=== PATIENT | male | born 1970 | race African-American/Black ===

== ENCOUNTER 2020-12-06 05:56 | Emergency (ER) | payer OTHER ==
[~2020-12-06] VITALS: Ht 177.8 cm; Wt 72.1 kg
[~2020-12-06 05:56] MED LIST: ATIVAN0.5 MG PO; COMPLERA TABLE1 EACH PO; FLEXERIL PO; FLOVENT HFA 1110 MCG INH; FOLIC ACID1 MG PO; IPRATROPIU0.2 MG/1 M IH; ONDANSETRON HCL4 M2 PO; OXYCODONE HCL 55 MG PO; SPIRONOLACTONE50 MG PO; VENLAFAXIN75 MG/1 T2 PO; XARELTO15 MG PO; ZANTAC 150MG T150 M1 PO; ZOFRAN ODT4 MG PO; [UNRECOGNIZED DRUG - OTHER] PO
[2020-12-06 05:59] VITALS: BP 124/77
== END 2020-12-06 06:35 | disposition left against medical advice (07) ==
LOC: ER 05:56
DX: R11.2 Nausea with vomiting, unspecified (principal); R10.10 Upper abdominal pain, unspecified; R07.89 Other chest pain; J44.9 Chronic obstructive pulmonary disease, unspecified; Z86.2 Personal history of diseases of the blood and blood-forming organs and certain disorders involving the immune mechanism; Z79.899 Other long term (current) drug therapy; Z88.1 Allergy status to other antibiotic agents; Z88.5 Allergy status to narcotic agent; Z88.8 Allergy status to other drugs, medicaments and biological substances; Z91.012 Allergy to eggs

== ENCOUNTER 2021-01-25 20:57 | Emergency (ER) | payer OTHER ==
[~2021-01-25] VITALS: Ht 175.3 cm; Wt 71.7 kg
[~2021-01-25 20:57] MED LIST changes: +COMPAZINE10 MG PO; +OXYCODONE HCL E15 MG PO; +ZOFRAN ODT4 MG DISSOLVE
[2021-01-25 21:00] VITALS: BP 154/93
[2021-01-25] MEDS ORDERED: FLEXERIL PO (21:47)
[2021-01-26] MEDS ORDERED: ZOFRAN ODT4 MG PO (21:07)
== END 2021-01-25 21:57 | disposition home or self-care (01) ==
LOC: ER 20:57
DX: S16.1XXA Strain of muscle, fascia and tendon at neck level, initial encounter (principal); S39.012A Strain of muscle, fascia and tendon of lower back, initial encounter; J44.9 Chronic obstructive pulmonary disease, unspecified; Z87.891 Personal history of nicotine dependence; Z88.6 Allergy status to analgesic agent; Z91.012 Allergy to eggs; Z88.1 Allergy status to other antibiotic agents; Z88.8 Allergy status to other drugs, medicaments and biological substances; Z79.899 Other long term (current) drug therapy; Z98.890 Other specified postprocedural states; V49.88XA Car occupant (driver) (passenger) injured in other specified transport accidents, initial encounter; Y93.89 Activity, other specified; Y92.413 State road as the place of occurrence of the external cause; Y99.9 Unspecified external cause status